=== PATIENT | female | born 1990 | race Two or more races ===

== ENCOUNTER 2025-04-13 14:30 | Emergency (ER) | payer OTHER ==
[~2025-04-13] VITALS: Ht 170.2 cm; Wt 93.0 kg
[2025-04-13 14:30] VITALS: BP 157/97
[2025-04-13] MEDS ORDERED: IPRATROPIUM BROMIDE 0.5 MG/2.5 ML NEBU ONE (15:21)
[2025-04-13] MEDS ORDERED: ALBUTEROL SULFATE 2.5 MG/3 ML NEBU ONE (15:21)
[2025-04-13 15:28] VITALS: O2SAT 95
[2025-04-13] MEDS: IPRATROPIUM BROMIDE 0.5 MG/2.5 ML NEBU NEB ONE (15:28)
[2025-04-13] MEDS: ALBUTEROL SULFATE 2.5 MG/3 ML NEBU NEB ONE (15:28)
[2025-04-13] MEDS ORDERED: ALBU18HF2 INH (16:01)
[2025-04-13] MEDS ORDERED: PRED20TA PO (16:01)
[2025-04-13 16:45] VITALS: O2SAT 99
[2025-04-13 17:27] VITALS: BP 157/97; TEMP 97.9; O2SAT 95
== END 2025-04-13 17:00 | disposition home or self-care (01) ==
LOC: ER 14:30
DX: J45.901 Unspecified asthma with (acute) exacerbation (principal); R06.02 Shortness of breath
CPT/HCPCS: 99285; 94644; J7512; A4606; A4663; J3590